=== PATIENT | female | born 1995 | race Caucasian/White ===

== ENCOUNTER 2019-04-22 19:35 | Emergency (ER) | payer BC ==
[~2019-04-22] VITALS: Ht 152.4 cm; Wt 99.8 kg
[2019-04-22 20:00] VITALS: BP_SYST 149
[2019-04-22] MEDS: CEPHALEXIN 500 MG CAPSULE PO ONE (23:19)
[2019-04-22] MEDS: ACETAMINOPHEN 325 MG TABLET PO ONE (23:20)
[2019-04-22] MEDS ORDERED: ONDANSETRON 4 MG ODT TAB ONE (23:31)
[2019-04-22 23:44] VITALS: BP_SYST 138
== END 2019-04-22 23:44 | disposition home or self-care (01) ==
LOC: SED 19:35
DX: S70.362A Insect bite (nonvenomous), left thigh, initial encounter (principal); L03.116 Cellulitis of left lower limb; J45.909 Unspecified asthma, uncomplicated; W57.XXXA Bitten or stung by nonvenomous insect and other nonvenomous arthropods, initial encounter; Y93.89 Activity, other specified; Y92.89 Other specified places as the place of occurrence of the external cause; Y99.8 Other external cause status
CPT/HCPCS: 99283; Q0162